=== PATIENT | female | born 1985 | race African-American/Black ===

== ENCOUNTER 2019-02-10 21:31 | Emergency (ER) | payer MEDICAID ==
[~2019-02-10] VITALS: Ht 165.1 cm; Wt 68.0 kg
[2019-02-10] MEDS ORDERED: ONDANSETRON HCL 4MG/2ML INJ IV STA (23:34)
[2019-02-10] MEDS ORDERED: SODIUM CHLORIDE 0.9% 1,000 ML IV ONE (23:34)
[2019-02-11 02:18] VITALS: BP 118/80
== END 2019-02-11 03:33 | disposition home or self-care (01) ==
LOC: ER 21:31
DX: F12.929 Cannabis use, unspecified with intoxication, unspecified (principal)
CPT/HCPCS: 96374; 99283; J2405; J7030; Z7610